=== PATIENT | male | born 1960 | race Caucasian/White ===

== ENCOUNTER 2024-07-12 07:39 | Emergency (ER) | payer MEDICARE, MEDICAID, SELFPAY ==
[2024-07-12 07:44] VITALS: BP 114/60; PULSE 68; RESP 18; TEMP 36.4; O2SAT 96; BMI 37.8
[2024-07-12] MEDS: Diphth,Pertus(ACell),Tet Adult 0.5 ML SYRINGE IM (08:16)
--- NOTE | 2024-07-12 08:26 | ED_ITS ---
HPI - Wound/Laceration General Chief Complaint: Wound/Laceration Stated Complaint: r index finger laceration Time Seen by Provider: 07/12/24 08:01 Source: patient Mode of arrival: ambulatory Limitations: no limitations History of Present Illness ED Provider: Eliana HARTMAN narrative: 63yo M PMHx Nan orellana presenting for evaluation of a skin laceration to his R 2nd digit. Earlier this morning, patient was using scissors to open a new item when his hand slipped and he accidentally cut himself. Patient denies fevers, chills, blood thinners, wound contamination, sensation of foreign body, loss of sensation distal to the wound. Tatanus unclear. Related Data Allergies Allergy/AdvReac Type Severity Reaction Status Date / Time No Known Allergies Allergy Verified 07/12/24 07:45 Review of Systems Review of Systems: Yes all other systems are reviewed and are negative FOR[facility]LY [facility] Past Medical History Attestation statement: The following information was validated with the patient. Source: old records reviewed and nursing notes reviewed Social History Social History Advance Directives: No Advance Directives Information Provided: No Do you have a plan to hurt others: No Plan Physical Exam Vital Signs: Vital Signs: Last Vital Signs Temp 97.6 F 07/12/24 08:30 Pulse 68 07/12/24 08:30 Resp 18 07/12/24 08:30 BP 114/60 07/12/24 08:30 Pulse Ox 96 07/12/24 08:30 O2 Del Method Room Air 07/12/24 08:30 BMI result Body Mass Index 37.8 VSS Appearance: Alert.? Oriented X3.? No acute cardiopulmonary distress distress.? Head: Normocephalic, atraumatic CVS: Pulses normal.? Respiratory: No respiratory distress.? Skin: ? Normal skin color. ~1cm superficial laceration over R 2nd PIP. Extremities: 5/5 retail brand ambassador strength b/l. Full ROM intact for R 2nd digit. Good capillary refill b/l for UEs. 2+ R radial pulse equal and b/l Neuro: Oriented X 3.? No motor deficit.? No sensory deficit. Course Reevaluation(s) Reevaluation #1: Dermabond applied. Finger immobilizer placed. Educated patient on diagnosis and treatment plan, answered all question, patient verbalizes understanding. At this time patient will be discharged home, advised to return with new or worsening symptoms. Educated on worrisome signs and symptoms and when to return. At this time I feel comfortable discharge home. Medications Administered Discontinued Medications Generic Name Dose Route Start Last Admin Trade Name Chiara PRN Reason Stop Dose Admin Diphtheria/Tetanus/Acell Pertussis 0.5 ml 07/12/24 08:01 07/12/24 08:16 Diphth,Pertus(Acell),Tet Adult 0.5 Ml Syringe IM 07/12/24 08:02 0.5 ml .ONCE ONE Administration Lidocaine HCl 5 ml 07/12/24 08:00 07/12/24 08:26 Lidocaine Hcl 2 % Mpf 5 Ml Vial SUBCUT 07/12/24 08:01 Not Given ONCE ONE Lidocaine HCl 5 ml 07/12/24 08:00 07/12/24 08:26 Lidocaine Hcl 1 % 20 Ml Vial SUBCUT 07/12/24 08:01 Not Given ONCE ONE Medical Decision Making Medical Decision Making MDM Narrative: 63yo M PMHx Crohns dz presenting for evaluation of a skin laceration to his R 2nd digit. PE: ~1cm superficial laceration over R 2nd PIP. 5/5 retail brand ambassador strength b/l. Full ROM intact for R 2nd digit. Good capillary refill b/l for UEs. 2+ R radial pulse Hx and PE concerning for superficial skin laceration. Less likely, tendon rupture, joint involvement, threat to digit, fx/dislocation, nv compromise Plan: Disinfect wound, dermabond laceration, finger immobilization Differential Diagnosis Differential Diagnoses: The differential diagnosis associated with the presentation includes (Hx and PE concerning for superficial skin laceration. Less likely, tendon rupture, joint involvement, threat to digit. ) Admission/Observation Consideration of admission/observation: Escalation of care including admission/observation considered Not indicated Discharge Plan Discharge Clinical Impression: Laceration Patient Disposition: Home, Self-Care Additional Instructions: Take your medications as prescribed. If you were prescribed antibiotics today, it is important that you take your medication to their entirety, do not skip any doses, do not finish them early. Follow-up with your primary care provider this week. Return to the emergency department with new or worsening symptoms. Such as fevers, chills, chest pain, shortness of breath, nausea, vomiting, dizziness, headache, vision changes, lethargy In case of emergency call 911 Allow the glue to fall off on its own. You may get your hands wet but do not scrub the affected area as it will prematurely dissolve the glue. Keep your finger immobilized in the applied splint for 2-3 days to facilitate wound healing. Return with any new or worsening symptoms or signs of infection. Referrals: Alvarez Rowley [Primary Care Provider] - 2 days Interventions: ED Discharge Assessment Last Done: 07/12/24 08:30 Discharge Date/Time: 07/12/24 08:31 Print Language: Lao
[2024-07-12 08:30] VITALS: BP 114/60; PULSE 68; RESP 18; TEMP 36.4; O2SAT 96
== END 2024-07-12 08:31 | disposition home or self-care (01) ==
PROVIDERS: Emergency Provider Emergency Medicine Emergency Medical Services; PCP Internal Medicine
DX: S61.210A Laceration without foreign body of right index finger without damage to nail, initial encounter (principal); W26.8XXA Contact with other sharp object(s), not elsewhere classified, initial encounter; Y93.9 Activity, unspecified; Y92.9 Unspecified place or not applicable; Y99.9 Unspecified external cause status; Z23 Encounter for immunization
CPT/HCPCS: 90471; 90715; 99282; 99284